=== PATIENT | male | born 1975 | race Caucasian/White ===

== ENCOUNTER 2021-01-08 07:45 | Emergency (ER) | payer OTHER ==
[2021-01-08] MEDS ORDERED: SODIUM CHLORIDE 0.9% 500 ML 500 ML IV STA (07:54)
--- NOTE | 2021-01-08 08:00 | ED ---
General Adult HPI - General Stated complaint: CVA Time Seen by Provider: 01/08/21 07:48 - History of Present Illness Initial comments: Dictation was produced using [employer] dictation software. please excuse any grammatical, word or spelling errors. This patient was cared for during a federal and state declared state of emergency secondary to Covid 19 Chief Complaint: 45-year-old male with extensive past medical history presents to the emergency department for strokelike symptoms. History of Present Illness: Patient's 45-year-old male he has extensive past medical history. Presents today via EMS and his father. Patient has history of severe coronary artery disease status post multivessel coronary artery bypass grafting. He has extensive history of type 1 diabetes recent left toe amputation with gangrenous foot. His last seen normal at approximately 5:30 AM with father. Father takes care of him at home and administer services IV antibiotics via PICC line. He also is on oral antibiotics. Father describes that he woke up this morning at 5:30 AM to administer patient IV and oral medications. He ambulated to the bathroom twice and set the table with patient. He went to bed here at around 7 AM father went to wake up patient however he seemed to be minimally responsive. EMS was called. EMS reports that patient having strokelike symptoms. Unable to move his left side of his body. Father states that patient is recently admitted to [facility]. He has had strokes in the past. Father is not sure if he has ever had intracranial bleed. Does not take any and a coagulation medications. Father presents patient's recent discharge paperwork [facility]. The ROS documented in this emergency department record has been reviewed and confirmed by me. Those systems with pertinent positive or negative responses have been documented in the HPI. All other systems are other negative and/or noncontributory. PHYSICAL EXAM: General Impression: not in acute distress, unable to talk HEENT: Normocephalic atraumatic, extra-ocular movements intact, pupils equal and reactive to light bilaterally, mucous membranes moist. Cardiovascular: Heart regular rate and rhythm, external if her living place Chest: no retractions, no tachypnea, midline chest scar clean dry and intact Abdomen: abdomen soft, non-tender, non-distended, no organomegaly Musculoskeletal: Pulses present and equal in all extremities, no peripheral edema Neurological: Gaze deviation to the right, flaccid paralysis of his left upper and left lower extremity, weakness of the right lower extremity, no drift of the right upper extremity, good deviation to the right with left-sided rey-neglect Skin: Intact with no visualized rashes ED course: 45-year-old male presents for strokelike symptoms. Last seen normal at 5:30 AM. She has extensive medical history. Point of care blood glucose is 327. Patient given an initial NIH score of 20 Case discussed with stroke neurologist Dr. Mckinnon. Stroke neurologist Dr. Faustin reviewed CT films showed no acute processes or intracranial bleed or large vessel occlusion. He did evaluate patient and speak with patient's father over robot. Extensive discussion was held and we decided TPA will be administered. Risk and benefits of administration of these medications were discussed. Given patient's young age father agreed with aggressive management. EKG interpretation: Ventricular rate 105, sinus tachycardia,. Interval 152, QRS 104, QTC 473. No SD prolongation, no QTC prolongation, no ST or T-wave changes noted. EKG compared to April 25 2015 showing no changes. Overall, this EKG is unremarkable Laboratory evaluation obtained. CBC within acceptable limits. Glucose 90. Metabolic panel shows slight elevation of renal markers. Creatinine 1.34 with a BUN of 53. Troponin elevated 0.118. Negative for flu RSV or coronavirus. Chest x-ray shows no acute pulmonary processes. Stroke neurologist requested patient be transferred to [facility] for CVA and intensive monitoring after TPA administration. Transfer was coordinated with Sandra stroke neurology physician general assistant for Dr. Faustin. - Related Data Home Medications Medication Instructions Recorded Confirmed metFORMIN HCL 1,000 mg PO BID 04/25/15 04/25/15 Previous Rx's Medication Instructions Recorded Aspirin 81 mg PO DAILY #30 chew 04/26/15 INSULIN LISPRO (humaLOG) [humaLOG] 15 unit SQ AC-TID vial 04/26/15 Insulin Glargine [Lantus] 50 unit SQ HS #1 vial 04/26/15 Metoprolol Tartrate 12.5 mg PO BID #60 tab 04/26/15 Simvastatin [Zocor] 20 mg PO HS #30 tab 04/26/15 Allergies Allergy/AdvReac Type Severity Reaction Status Date / Time No Known Allergies Allergy Verified 04/25/15 08:42 Review of Systems ROS Statement: Those systems with pertinent positive or pertinent negative responses have been documented in the HPI. ROS Other: All systems not noted in ROS Statement are negative. Past Medical History Past Medical History: Diabetes Mellitus Additional Past Medical History / Comment(s): 04/2015 FOOT PAIN/INFECTION History of Any Multi-Drug Resistant Organisms: None Reported Past Surgical History: Heart Catheterization With Stent Additional Past Surgical History / Comment(s): stent placed in 2011 Past Anesthesia/Blood Transfusion Reactions: No Reported Reaction Date of Last Stent Placement:: 2011 Past Psychological History: Depression Past Alcohol Use History: None Reported Past Drug Use History: None Reported - Past Family History Mother Family Medical History: Coronary Artery Disease (CAD), Diabetes Mellitus Course Vital Signs 01/08/21 01/08/21 01/08/21 07:59 08:14 08:18 Temperature 97.2 F L 97.2 F L 97.2 F L Pulse Rate 101 H 102 H 101 H Respiratory 16 16 16 Rate Blood Pressure 115/85 116/88 115/85 O2 Sat by Pulse 99 99 99 Oximetry 01/08/21 01/08/21 01/08/21 08:23 08:29 08:44 Temperature 97.2 F L 97.2 F L Pulse Rate 101 H 101 H 103 H Respiratory 16 16 16 Rate Blood Pressure 113/80 113/80 111/83 O2 Sat by Pulse 98 98 97 Oximetry 01/08/21 01/08/21 01/08/21 08:59 09:05 09:14 Temperature Pulse Rate 103 H 103 H 103 H Respiratory 16 16 16 Rate Blood Pressure 114/81 114/81 107/78 O2 Sat by Pulse 99 99 97 Oximetry 01/08/21 01/08/21 01/08/21 09:16 09:20 09:23 Temperature Pulse Rate 106 H 103 H 103 H Respiratory 16 16 16 Rate Blood Pressure 111/80 111/80 111/80 O2 Sat by Pulse 96 96 96 Oximetry 01/08/21 01/08/21 01/08/21 09:31 09:35 09:46 Temperature Pulse Rate 104 H 105 H 105 H Respiratory 16 16 16 Rate Blood Pressure 112/82 112/82 105/78 O2 Sat by Pulse 96 96 96 Oximetry 01/08/21 01/08/21 01/08/21 09:50 10:01 10:05 Temperature Pulse Rate 104 H 104 H 104 H Respiratory 16 16 16 Rate Blood Pressure 105/78 107/78 107/78 O2 Sat by Pulse 96 96 96 Oximetry 01/08/21 01/08/21 01/08/21 10:16 10:20 10:31 Temperature 97.5 F L Pulse Rate 102 H 103 H 107 H Respiratory 16 16 16 Rate Blood Pressure 111/84 111/84 115/82 O2 Sat by Pulse 96 97 99 Oximetry 01/08/21 01/08/21 10:35 10:50 Temperature Pulse Rate 105 H 105 H Respiratory 16 15 Rate Blood Pressure 115/82 118/86 O2 Sat by Pulse 99 99 Oximetry Medical Decision Making - Lab Data Result diagrams: 01/08/21 08:00 01/08/21 08:00 Lab Results 01/08/21 01/08/21 01/08/21 Range/Units 07:51 08:00 08:00 WBC 6.2 (3.8-10.6) k/uL RBC 4.88 (4.30-5.90) m/uL Hgb 12.3 L (13.0-17.5) gm/dL Hct 39.7 (39.0-53.0) % MCV 81.4 (80.0-100.0) fL MCH 25.1 (25.0-35.0) pg MCHC 30.9 L (31.0-37.0) g/dL RDW 16.2 H (11.5-15.5) % Plt Count 270 (150-450) k/uL MPV 7.8 Neutrophils % 69 % Lymphocytes % 20 % Monocytes % 5 % Eosinophils % 3 % Basophils % 1 % Neutrophils # 4.3 (1.3-7.7) k/uL Lymphocytes # 1.3 (1.0-4.8) k/uL Monocytes # 0.3 (0-1.0) k/uL Eosinophils # 0.2 (0-0.7) k/uL Basophils # 0.1 (0-0.2) k/uL Hypochromasia Moderate Anisocytosis Slight PT 11.4 (9.0-12.0) sec INR 1.1 (<1.2) APTT 22.2 (22.0-30.0) sec Sodium (137-145) mmol/L Potassium (3.5-5.1) mmol/L Chloride (98-107) mmol/L Carbon Dioxide (22-30) mmol/L Anion Gap mmol/L BUN (9-20) mg/dL Creatinine (0.66-1.25) mg/dL Est GFR (CKD-EPI)AfAm (>60 ml/min/1.73 sqM) Est GFR (CKD-EPI)NonAf (>60 ml/min/1.73 sqM) Glucose (74-99) mg/dL POC Glucose (mg/dL) 374 H (75-99) mg/dL POC Glu [employer] Supervisor ID Arleth Hawthorne Plasma Lactic Acid Floyd (0.7-2.0) mmol/L Calcium (8.4-10.2) mg/dL Magnesium (1.6-2.3) mg/dL Total Bilirubin (0.2-1.3) mg/dL AST (17-59) U/L ALT (4-49) U/L Alkaline Phosphatase (38-126) U/L Troponin I (0.000-0.034) ng/mL Total Protein (6.3-8.2) g/dL Albumin (3.5-5.0) g/dL Influenza Type A (PCR) (Not Detectd) Influenza Type B (PCR) (Not Detectd) RSV (PCR) (Not Detectd) SARS-CoV-2 (PCR) (Not Detectd) 01/08/21 01/08/21 01/08/21 Range/Units 08:00 08:00 08:00 WBC (3.8-10.6) k/uL RBC (4.30-5.90) m/uL Hgb (13.0-17.5) gm/dL Hct (39.0-53.0) % MCV (80.0-100.0) fL MCH (25.0-35.0) pg MCHC (31.0-37.0) g/dL RDW (11.5-15.5) % Plt Count (150-450) k/uL MPV Neutrophils % % Lymphocytes % % Monocytes % % Eosinophils % % Basophils % % Neutrophils # (1.3-7.7) k/uL Lymphocytes # (1.0-4.8) k/uL Monocytes # (0-1.0) k/uL Eosinophils # (0-0.7) k/uL Basophils # (0-0.2) k/uL Hypochromasia Anisocytosis PT (9.0-12.0) sec INR (<1.2) APTT (22.0-30.0) sec Sodium 133 L (137-145) mmol/L Potassium 4.6 (3.5-5.1) mmol/L Chloride 94 L (98-107) mmol/L Carbon Dioxide 30 (22-30) mmol/L Anion Gap 9 mmol/L BUN 53 H (9-20) mg/dL Creatinine 1.34 H (0.66-1.25) mg/dL Est GFR (CKD-EPI)AfAm 74 (>60 ml/min/1.73 sqM) Est GFR (CKD-EPI)NonAf 64 (>60 ml/min/1.73 sqM) Glucose 339 H (74-99) mg/dL POC Glucose (mg/dL) (75-99) mg/dL POC Glu [employer] Supervisor ID Plasma Lactic Acid Floyd 1.2 (0.7-2.0) mmol/L Calcium 9.5 (8.4-10.2) mg/dL Magnesium 2.0 (1.6-2.3) mg/dL Total Bilirubin 0.5 (0.2-1.3) mg/dL AST 44 (17-59) U/L ALT 28 (4-49) U/L Alkaline Phosphatase 81 (38-126) U/L Troponin I 0.118 H* (0.000-0.034) ng/mL Total Protein 6.8 (6.3-8.2) g/dL Albumin 3.6 (3.5-5.0) g/dL Influenza Type A (PCR) (Not Detectd) Influenza Type B (PCR) (Not Detectd) RSV (PCR) (Not Detectd) SARS-CoV-2 (PCR) (Not Detectd) 01/08/21 Range/Units 09:17 WBC (3.8-10.6) k/uL RBC (4.30-5.90) m/uL Hgb (13.0-17.5) gm/dL Hct (39.0-53.0) % MCV (80.0-100.0) fL MCH (25.0-35.0) pg MCHC (31.0-37.0) g/dL RDW (11.5-15.5) % Plt Count (150-450) k/uL MPV Neutrophils % % Lymphocytes % % Monocytes % % Eosinophils % % Basophils % % Neutrophils # (1.3-7.7) k/uL Lymphocytes # (1.0-4.8) k/uL Monocytes # (0-1.0) k/uL Eosinophils # (0-0.7) k/uL Basophils # (0-0.2) k/uL Hypochromasia Anisocytosis PT (9.0-12.0) sec INR (<1.2) APTT (22.0-30.0) sec Sodium (137-145) mmol/L Potassium (3.5-5.1) mmol/L Chloride (98-107) mmol/L Carbon Dioxide (22-30) mmol/L Anion Gap mmol/L BUN (9-20) mg/dL Creatinine (0.66-1.25) mg/dL Est GFR (CKD-EPI)AfAm (>60 ml/min/1.73 sqM) Est GFR (CKD-EPI)NonAf (>60 ml/min/1.73 sqM) Glucose (74-99) mg/dL POC Glucose (mg/dL) (75-99) mg/dL POC Glu [employer] Supervisor ID Plasma Lactic Acid Floyd (0.7-2.0) mmol/L Calcium (8.4-10.2) mg/dL Magnesium (1.6-2.3) mg/dL Total Bilirubin (0.2-1.3) mg/dL AST (17-59) U/L ALT (4-49) U/L Alkaline Phosphatase (38-126) U/L Troponin I (0.000-0.034) ng/mL Total Protein (6.3-8.2) g/dL Albumin (3.5-5.0) g/dL Influenza Type A (PCR) Not Detected (Not Detectd) Influenza Type B (PCR) Not Detected (Not Detectd) RSV (PCR) Not Detected (Not Detectd) SARS-CoV-2 (PCR) Not Detected (Not Detectd) Critical Care Time Critical Care Time: Yes Total Critical Care Time: 33 Disposition Clinical Impression: Cerebrovascular accident (CVA) Disposition: OTHER INSTITUTION NOT DEFINED Condition: Fair Referrals: Nonstaff,Physician [Primary Care Provider] - 1-2 days Time of Disposition: 11:06 - Out of Hospital Transfer - Req. Specs Out of Hospital Transfer - Requested Specifics: Other Emergency Center ([facility] [place])
[2021-01-08 08:11] LABS: Glucose,Whole Blood 374 mg/dL (75-99)
[2021-01-08 08:23] LABS: Anisocytosis Slight; Basophils # (A) 0.1 k/uL (0-0.2); Basophils % (A) 1 %; Eosinophils # (A) 0.2 k/uL (0-0.7); Eosinophils % (A) 3 %; HCT 39.7 % (39.0-53.0); HGB 12.3 gm/dL (13.0-17.5); Hypochromasia Moderate; Lymphocytes # (A) 1.3 k/uL (1.0-4.8); Lymphocytes % (A) 20 %; MCH 25.1 pg (25.0-35.0); MCHC 30.9 g/dL (31.0-37.0); MCV 81.4 fL (80.0-100.0); Mean Platelet Volume 7.8; Monocytes # (A) 0.3 k/uL (0-1.0); Monocytes % (A) 5 %; Neutrophils # (A) 4.3 k/uL (1.3-7.7); Neutrophils % (A) 69 %; Platelet Count 270 k/uL (150-450); RBC 4.88 m/uL (4.30-5.90); RDW 16.2 % (11.5-15.5); WBC 6.2 k/uL (3.8-10.6)
--- NOTE | 2021-01-08 08:27 | CT ---
EXAMINATION TYPE: CT brain wo con for TPA DATE OF EXAM: 01/08/2021 COMPARISON: 04/22/2015 INDICATION: CODE STROKE, history of TIA, Open heart surgery and eft great toe amputation DLP: Not available at time of entry mGycm, Automated exposure control for dose reduction was used. CONTRAST: None CT of the brain is performed utilizing 3 mm thick sections through the posterior fossa and 3 mm thick sections through the remaining calvarium. Study is performed within 24 hours of arrival to the hosp ital. No abnormal hyperdensity is present to suggest an acute intracranial hemorrhage. No mass lesion is evident. No acute infarcts are evident. There is a subtle hypodensity with ill-defined margins in the left rad iata, series 201 image 36. In retrospect this may have been present previously. This may be a small a speedy of chronic white matter ischemic change. Acute infarcts are not identified. Bilateral chronic derek earing lacunar infarcts within the basal ganglion are present. Ventricles and sulci are appropriate for the patient age. Paranasal sinuses and mastoid air cells within the [id number] are clear. IMPRESSIONS: 1. Chronic appearing bilateral basal ganglia lacunar infarcts some chronic appearing microvascular ischemic type changes within the left montes radiata. 2. MRI can be performed as follow-up for continued symptoms
[2021-01-08 08:28] LABS: INR 1.1 (<1.2); Partial Thromboplastin Time 22.2 sec (22.0-30.0); Prothrombin Time 11.4 sec (9.0-12.0)
[2021-01-08 08:30] LABS: Albumin 3.6 g/dL (3.5-5.0); Calcium 9.5 mg/dL (8.4-10.2); Potassium 4.6 mmol/L (3.5-5.1); Total Bilirubin 0.5 mg/dL (0.2-1.3); Total Protein 6.8 g/dL (6.3-8.2)
[2021-01-08] MEDS ORDERED: Alteplase PER PHARMACY Stroke 1 EACH MISC MISCELLANE PRN (08:45)
[2021-01-08] MEDS ORDERED: ALTEPLASE BOLUS 6 MG in EMPTY SYRINGE 1 SYR IV STA (08:47)
[2021-01-08] MEDS ORDERED: ALTEPLASE 53 MG in EMPTY BAG 1 BAG IV STA (08:47)
--- NOTE | 2021-01-08 09:08 | CT ---
EXAMINATION TYPE: CT angio head neck DATE OF EXAM: 01/08/2021 COMPARISON: None HISTORY: CODE Stroke, History of TIA, S/P open heart surgery, amputation of left great toe. positive diabetic CT DLP: 459.4 mGycm CONTRAST: Performed without and with IV Contrast, patient injected with 65 ml mL of Isovue 370. Combination Contrast CTA cervical carotids and [place] of [place] CTA cervical carotids with 3-D recons truction Contrast CTA of the cervical carotids was performed 3-D reconstruction imaging obtained at a separate workstation. Right carotid system: Mild plaque is seen of the right common carotid artery. There is mild plaque a lso noted at the carotid bulb and proximal ICA. No significant diameter reduction. ECA is patent. Right vertebral artery appears unremarkable. Left carotid system: Mild plaque is seen of the left common carotid artery. There is mild plaque als o noted at the carotid bulb and proximal ICA. No significant diameter reduction. ECA is patent. Lef t vertebral artery appears unremarkable. IMPRESSION: 1. No significant diameter reduction to account for the patient's symptoms. CTA [place] with 3-D reconstruction Contrast CTA of the [place] of [place] was performed 3-D reconstruction imaging obtained at a separate workstation. Vertebrobasilar system as well as intracranial portions of the internal carotid arteries and their [place] tributaries are patent. I do not see evidence for sizable aneurysm or vascular malformation. Pl ease note MRI provides greater sensitivity and specificity. Visualized brain appears grossly unremar kable. IMPRESSION: 1. No significant abnormality.
[2021-01-08] MEDS ORDERED: SODIUM CHLORIDE 0.9% 1,000 ML IV SCH (09:15)
[2021-01-08] MEDS ORDERED: SODIUM CHLORIDE 0.9% 50 ML MINI-BAG IV ONE ×3 (09:46→10:05)
[2021-01-08 10:18] VITALS: TEMP 97.5
--- NOTE | 2021-01-08 10:55 | XR ---
EXAMINATION TYPE: XR chest 2V DATE OF EXAM: 01/08/2021 COMPARISON: None INDICATION: Altered mental status TECHNIQUE: Frontal and lateral views of the chest are obtained. FINDINGS: The heart size is normal. The pulmonary vasculature is normal. The lungs are clear. Sternotomy wires and electronic devices overlie the chest. IMPRESSION: 1. No acute pulmonary process.
[2021-01-08 13:35] VITALS: BP 116/81; PULSE 102; RESP 18
== END 2021-01-08 13:10 | disposition short-term general hospital (02) ==
LOC: EC 07:45
DX: I63.9 Cerebral infarction, unspecified (principal); E11.9 Type 2 diabetes mellitus without complications; I25.10 Atherosclerotic heart disease of native coronary artery without angina pectoris; Z79.82 Long term (current) use of aspirin; Z82.49 Family history of ischemic heart disease and other diseases of the circulatory system; Z83.3 Family history of diabetes mellitus; Z86.73 Personal history of transient ischemic attack (TIA), and cerebral infarction without residual deficits; Z95.1 Presence of aortocoronary bypass graft; Z98.890 Other specified postprocedural states; Z79.4 Long term (current) use of insulin; Z20.822 Contact with and (suspected) exposure to COVID-19
CPT/HCPCS: 96360 ×2; 96361 ×2; 99291 ×2; 37195 ×2; 36415; 93005; 80053; 83605; 83735; 84484; 85025; 85610; 85730; 87040; 87636; 71046; 70496; 70450; 70498; J2997; Q9967

== ENCOUNTER 2021-01-30 22:13 | Emergency (ER) | payer OTHER ==
[2021-01-30 22:29] LABS: Glucose,Whole Blood 224 mg/dL (75-99)
[2021-01-30 22:32] VITALS: PULSE 0; RESP 0; TEMP 97.8
--- NOTE | 2021-01-30 22:35 | ED ---
CPR HPI - General Stated Complaint: Cardiac Arrest Time Seen by Provider: 01/30/21 22:13 Source: EMS Mode of arrival: EMS Limitations: altered mental status - History of Present Illness Initial Comments: This patient is a 45-year-old man brought from half-way by EMS. They were called for respiratory distress. Was reported that the patient was very short of breath when they arrived and found him on the nonrebreather mask. The patient then became unresponsive while they were there. They state that he lost vital signs at 9:30 and they started ACLS protocol. A Jl tube was placed and they deliver oxygen by the bag. An IO line was placed and the patient had 3 mg of epinephrine during resuscitation. The patient was reportedly showing asystole on the monitor. MD Complaint: stopped breathing Onset/Timin -: hour(s) Place: [facility] Bystander CPR Performed: Yes Shock Advised: No Downtime Before ACLS Arrival (mins): 40 Initial Findings in the Field: sinus rhythm ROSC in the Field: No Associated Injuries: No Associated Symptoms: shortness of breath Treatments Prior to Arrival: other airway device, chest compressions, epinephrine mgs # (3) - Related Data Home Medications Medication Instructions Recorded Confirmed metFORMIN HCL 1,000 mg PO BID 04/25/15 04/25/15 Previous Rx's Medication Instructions Recorded Aspirin 81 mg PO DAILY #30 chew 04/26/15 INSULIN LISPRO (humaLOG) [humaLOG] 15 unit SQ AC-TID vial 04/26/15 Insulin Glargine [Lantus] 50 unit SQ HS #1 vial 04/26/15 Metoprolol Tartrate 12.5 mg PO BID #60 tab 04/26/15 Simvastatin [Zocor] 20 mg PO HS #30 tab 04/26/15 Allergies Allergy/AdvReac Type Severity Reaction Status Date / Time No Known Allergies Allergy Verified 04/25/15 08:42 Review of Systems ROS Statement: Those systems with pertinent positive or pertinent negative responses have been documented in the HPI. ROS Other: All systems not noted in ROS Statement are negative. Limitations: ROS unobtainable due to patients medical condition Past Medical History Past Medical History: Diabetes Mellitus Additional Past Medical History / Comment(s): 04/2015 FOOT PAIN/INFECTION History of Any Multi-Drug Resistant Organisms: None Reported Past Surgical History: Heart Catheterization With Stent Additional Past Surgical History / Comment(s): stent placed in 2011 Past Anesthesia/Blood Transfusion Reactions: No Reported Reaction Date of Last Stent Placement:: 2011 Past Psychological History: Depression Past Alcohol Use History: None Reported Past Drug Use History: None Reported - Past Family History Mother Family Medical History: Coronary Artery Disease (CAD), Diabetes Mellitus General Exam General appearance: other (Patient is unresponsive on arrival with ACLS protocol ongoing.) Head exam: Present: atraumatic, normocephalic Eye exam: Present: other (Conjunctival drying). Absent: PERRL, EOMI, scleral icterus, conjunctival injection Pupils: Present: other (Pupils are midrange and unreactive) ENT exam: Present: mucous membranes dry, other (Jl tube present) Neck exam: Present: normal inspection, other (No bony deformity or step off) Respiratory exam: Present: rhonchi (Scattered rhonchi with bagging), other (No spontaneous inspiratory effort). Absent: normal lung sounds bilaterally Cardiovascular Exam: Present: other (No palpable PMI. No cardiac sounds. No palpable pulses) GI/Abdominal exam: Present: soft, other (No bowel sounds. PEG tube present). Absent: distended, tenderness, guarding Extremities exam: Present: other (There is diffuse muscle wasting. There is a healing incision from left great toe amputation.). Absent: tenderness, normal capillary refill Back exam: Present: normal inspection Neurological exam: Present: other (GCS is 3. No neurologic signs of life.) Skin exam: Present: warm, dry, cyanosis. Absent: rash Medical Decision Making - Medical Decision Making Patient is 45-year-old man who had been having respiratory distress and then became unresponsive while EMS was arriving on scene. They did perform ACLS protocol for 40 minutes with no response. The patient remained in asystole on the monitor. We did continue ACLS protocol with additional epinephrine and a bicarb, there was no response whatsoever and patient remained in asystole and was pronounced at 2223. Disposition Clinical Impression: Cardiopulmonary arrest Disposition: Condition: Undetermined Is patient prescribed a controlled substance at d/c from ED?: No Referrals: None,Stated [Primary Care Provider] - 1-2 days Preliminary Cause of : Cardiopulmonary arrest
== END 2021-01-31 02:00 | disposition expired ==
LOC: EC 22:13
DX: I46.9 Cardiac arrest, cause unspecified (principal); E11.9 Type 2 diabetes mellitus without complications; Z79.4 Long term (current) use of insulin
CPT/HCPCS: 36415; 99285